=== PATIENT | male | born 1950 | race Caucasian/White ===

== ENCOUNTER → 2023-10-24 13:00 | Outpatient (REF) | payer MEDICARE, OTHER, SELFPAY | LOC: RCS 13:00 | PROVIDERS: ATTENDING PHYSICIAN Internal Medicine Cardiovascular Disease; FAMILY PHYSICIAN Family Medicine | DX: R94.31 Abnormal electrocardiogram [ECG] [EKG] (principal); I10 Essential (primary) hypertension; I49.3 Ventricular premature depolarization; R06.02 Shortness of breath; I45.10 Unspecified right bundle-branch block | CPT/HCPCS: 93225; 93226 ==

== ENCOUNTER → 2024-05-01 12:50 | Outpatient (REF) | payer MEDICARE, OTHER, SELFPAY ==
--- NOTE | 2024-05-01 15:01 | CARDSERVLU ---
Echocardiogram with Lumason completed after protocol screening completed. Allergies verified.
Patent IV site: _RAC____
IV site flushed with 0.9% NaCl pre and post administration.
Diluted bolus method utilized to enhance visualization of ventricular mckeon.
Total volume given: __3__ mL
Patient tolerated all procedures well without complications.
== END ==
LOC: HWRCS 12:50
PROVIDERS: ATTENDING PHYSICIAN Internal Medicine Cardiovascular Disease; FAMILY PHYSICIAN Family Medicine
DX: I49.3 Ventricular premature depolarization (principal); R07.9 Chest pain, unspecified; I10 Essential (primary) hypertension; E78.2 Mixed hyperlipidemia
CPT/HCPCS: 93306

== ENCOUNTER → 2024-05-02 09:10 | Outpatient (REF) | payer MEDICARE, OTHER, SELFPAY ==
[2024-05-02 10:37] LABS: Hematocrit 43.4 % (39.0-52.0); Hemoglobin 15.4 g/dL (13.0-18.0); Mean Corp Hgb Conc. 35.5 g/dL (33.0-37.0); Mean Corpuscular Hgb 32.8 pg (27.0-31.0); Mean Corpuscular Volume 92.3 fL (80.0-94.0); Mean Platelet Volume 9.4 fL (7.4-10.4); Platelet Count 211 10^3/uL (130-400); Red Cell Dist. Width 12.4 % (11.5-14.5); White Blood Cell Count 7.5 10^3/uL (4.8-10.8)
[2024-05-02 10:56] LABS: Blood Urea Nitrogen 18 mg/dl (9-20); Calcium 9.5 mg/dl (8.4-10.2); Carbon Dioxide 27 mmol/L (22-30); Chloride 97 mmol/L (98-107); Glucose 135 mg/dl (70-99); Potassium 4.5 mmol/L (3.5-5.1); Sodium 138 mmol/L (135-145); eGFR > 60.00
== END ==
LOC: SDSPAT 09:10
PROVIDERS: ATTENDING PHYSICIAN Urology; FAMILY PHYSICIAN Family Medicine; OTHER PHYSICIAN Internal Medicine Cardiovascular Disease
DX: Z01.818 Encounter for other preprocedural examination (principal)
CPT/HCPCS: 36415; 80048; 85027

== ENCOUNTER 2024-05-14 06:27 | Day surgery (SDC) | payer MEDICARE, OTHER, SELFPAY ==
[2024-05-02 09:30] VITALS: BMI 29.2
[2024-05-14] VITALS (14 sets, daily range): BP systolic 103–168; BP diastolic 48–79; BMI 29.2
[2024-05-14 08:48] LABS: Glucose - Point of Care 142 mg/dl (70-99)
--- NOTE | 2024-05-14 11:43 | W.IMMPOSTOP ---
Surgical Immed Post Op Note
-
Primary Surgeon: Peffer
Assisting Surgeon: -
Pre-op Diagnosis: BPH
Post-op Diagnosis: BPH, bladder lesion
Procedure Performed: TURP, TURBT small
Anesthesia Type: gen
Specimen / Cultures: Prostate chips, posterior bladder neck lesion
Estimated Blood Loss: 1cc
Complications: none
Operative Findings: 3mm posterior bladder neck lesion/polyp with long vascular stalk. Relatively benign appearance, completely resected
Otherwise routine TURP
[2024-05-14 12:15] LABS: Glucose - Point of Care 117 mg/dl (70-99)
[2024-05-14] MEDS: NSS 1000 IV ×2 (13:54→22:42)
--- NOTE | 2024-05-14 14:04 | PTCARENOTE ---
Pt arrived to 2S in bed. Full assessment completed. IVF infusing per order. CBI infusing, clear output noted. Diabetic diet reviewed with pt, pt verbalized understanding. Bed locked and in the lowest position, safety maintained. Oriented to room and
call barkaat, significant other at bedside.
[2024-05-14 17:09] LABS: Glucose - Point of Care 185 mg/dl (70-99)
[2024-05-14] MEDS: FLOMAX 0.4 MG PO (17:46)
[2024-05-14] MEDS: CRESTOR 5 MG PO (17:47)
[2024-05-14] MEDS: NOVOLOG FLEXPEN-LOW RESISTANCE 1 UNITS SC (17:47)
[2024-05-14] MEDS: TOPROL XL 25 MG PO (17:47)
[2024-05-14 21:26] LABS: Glucose - Point of Care 144 mg/dl (70-99)
[2024-05-14] MEDS: TYLENOL 650 MG PO (21:43)
[2024-05-14] MEDS: MYLICON 80 MG PO (21:43)
[2024-05-15 03:56] VITALS: BP 109/70
[2024-05-15] MEDS: TYLENOL 650 MG PO (04:29)
[2024-05-15] MEDS: MYLICON 80 MG PO (04:48)
[2024-05-15 05:43] LABS: Hematocrit 39.7 % (39.0-52.0); Hemoglobin 13.9 g/dL (13.0-18.0); Mean Corpuscular Hgb 32.9 pg (27.0-31.0); Mean Corpuscular Volume 93.9 fL (80.0-94.0); Mean Platelet Volume 9.5 fL (7.4-10.4); Platelet Count 210 10^3/uL (130-400); Red Blood Cell Count 4.23 10^6/uL (4.70-6.10); Red Cell Dist. Width 12.3 % (11.5-14.5); White Blood Cell Count 10.5 10^3/uL (4.8-10.8)
[2024-05-15 06:04] LABS: Blood Urea Nitrogen 14 mg/dl (9-20); Calcium 8.9 mg/dl (8.4-10.2); Carbon Dioxide 23 mmol/L (22-30); Chloride 104 mmol/L (98-107); Estimated Creatinine Clearance 117 ml/min; Glucose 128 mg/dl (70-99); Potassium 4.3 mmol/L (3.5-5.1); Sodium 141 mmol/L (135-145); eGFR > 60.00
[2024-05-15 07:00] VITALS: BP 136/75
[2024-05-15 07:00] LABS: Glucose - Point of Care 139 mg/dl (70-99)
[2024-05-15] MEDS: NOVOLOG FLEXPEN-LOW RESISTANCE SC ×2 (08:09→12:31)
--- NOTE | 2024-05-15 08:25 | W.PN.URO.CBU ---
Today's Communication / Plan
-
Burgess removal and trial of void
Discharge today
Assessment / Plan
-
73M POD 1 s/p TURP
Burgess removal and trial of void
Discharge today
Diagnosis
-
Date of Service: May 15, 2024
-
Patient Diagnosis:
BPH
Post Op Day: 1 s/p TURP
Subjective
-
no events
tolerating diet
no pain
nohematuria
Objective
-
Vital Signs
Temp Pulse Resp BP Pulse Ox
97.5 F 65 17 136/75 98
05/15/24 07:00 05/15/24 07:00 05/15/24 07:00 05/15/24 07:00 05/15/24 07:00
Intake and Output
05/14/24 05/15/24 05/16/24
06:59 06:59 06:59
Intake Total 2820 / 2820
Output Total 6300 / 6300
Balance -3480 / -3480
Intake:
Oral fluids 1920 / 1920
IV fluids (Total) 900 / 900
Normosol 150 / 150
Output:
Urine, Voided 1500 / 1500
True Urine Output from CBI 4800 / 4800
Laboratory Results
05/15/24 04:23
05/15/24 04:23
Physical Exam
-
General - well developed, well nourished, no acute distress
Chest - clear bilaterally
Abdomen - soft, non-tender
Burgess in place clear yellow
[2024-05-15] MEDS: PROTONIX 40 MG PO (08:44)
[2024-05-15] MEDS: TOPROL XL 50 MG PO (08:44)
--- NOTE | 2024-05-15 10:50 | CM ---
Met with pt at bedside
Pt reports he lives with his girlfriend in a 2 story [place] home; 6 steps to enter, 12 steps to 2nd fl. + 1/2 bath on FF
Independent, retired, drives
DME - none
SNF/HH - denies past hx
Has ride home at discharge
PCP - Katey Esqueda
Ben
Plan - anticipate home no needs
[2024-05-15 11:00] VITALS: BP 149/82
[2024-05-15 11:28] LABS: Glucose - Point of Care 168 mg/dl (70-99)
--- NOTE | 2024-05-15 13:00 | PTCARENOTE ---
Burgess catheter removed as ordered at 0845. pt voided 100 ml bloody urine at 1000, PVR was 182. pt then voided an additional 200 ml punch colored urine at 1020 w/PVR 183. Dr Garibay made aware and pt instructed to increase fluid intake. monitoring
of urine output for color and amount before able to be discharged. pt has voided a total of an additional 1150 ml. last void was 300ml pink lemonade colored urine. pt endorses a minimal amount of discomfort when voiding. Dr Garibay made aware.
pt provided with discharge instructions.
[2024-05-17 03:40] LABS: Hepatitis C Antibody Negative (Negative)
== END 2024-05-15 13:30 | disposition home or self-care (01) ==
LOC: SDS 06:27
PROVIDERS: ATTENDING PHYSICIAN Urology; FAMILY PHYSICIAN Family Medicine
DX: C61 Malignant neoplasm of prostate (principal); N40.1 Benign prostatic hyperplasia with lower urinary tract symptoms; D49.4 Neoplasm of unspecified behavior of bladder; N32.9 Bladder disorder, unspecified
CPT/HCPCS: 52601; 52234; 88305; 80048; 82962; 83036; 85027; 86803

== ENCOUNTER → 2024-09-19 09:39 | Outpatient (REF) | payer MEDICARE, OTHER, SELFPAY | LOC: MRI 3T 09:39 | PROVIDERS: ATTENDING PHYSICIAN Urology | DX: N40.1 Benign prostatic hyperplasia with lower urinary tract symptoms (principal); C61 Malignant neoplasm of prostate | CPT/HCPCS: 72197; A9575 ==

== ENCOUNTER → 2024-11-12 13:36 | Outpatient (REF) | payer MEDICARE, OTHER, SELFPAY | LOC: CLAB 13:36 | PROVIDERS: ATTENDING PHYSICIAN Urology | DX: C61 Malignant neoplasm of prostate (principal) | CPT/HCPCS: 88305 ==

== ENCOUNTER → 2024-12-02 12:55 | Outpatient (REF) | payer MEDICARE, OTHER, SELFPAY | LOC: RCS 12:55 | PROVIDERS: ATTENDING PHYSICIAN Internal Medicine Cardiovascular Disease; FAMILY PHYSICIAN Family Medicine | DX: I49.3 Ventricular premature depolarization (principal) | CPT/HCPCS: 93225; 93226 ==

== ENCOUNTER → 2024-12-05 08:43 | Outpatient (REF) | payer MEDICARE, OTHER, SELFPAY | LOC: MRI 08:43 | PROVIDERS: ATTENDING PHYSICIAN Physical Medicine & Rehabilitation; FAMILY PHYSICIAN Family Medicine | DX: M54.16 Radiculopathy, lumbar region (principal) | CPT/HCPCS: 72148 ==

== ENCOUNTER 2025-05-14 06:31 | Day surgery (SDC) | payer MEDICARE, OTHER, SELFPAY ==
[2025-05-14 07:59] LABS: Glucose - Point of Care 160 mg/dl (70-99)
== END 2025-05-14 10:15 | disposition home or self-care (01) ==
LOC: GI 06:31
PROVIDERS: ATTENDING PHYSICIAN Specialist
DX: Z12.11 Encounter for screening for malignant neoplasm of colon (principal); K57.30 Diverticulosis of large intestine without perforation or abscess without bleeding; R11.2 Nausea with vomiting, unspecified; K31.7 Polyp of stomach and duodenum; K22.70 Barrett's esophagus without dysplasia; K63.5 Polyp of colon; K29.50 Unspecified chronic gastritis without bleeding; K63.89 Other specified diseases of intestine; Z80.0 Family history of malignant neoplasm of digestive organs; Z86.0101 Personal history of adenomatous and serrated colon polyps
CPT/HCPCS: 45380; 43239; 82962; 88305; 88342

== ENCOUNTER → 2025-05-29 12:50 | Outpatient (REF) | payer MEDICARE, OTHER, SELFPAY | LOC: HWRCS 12:50 | PROVIDERS: ATTENDING PHYSICIAN Internal Medicine Cardiovascular Disease; FAMILY PHYSICIAN Family Medicine | DX: I49.3 Ventricular premature depolarization (principal); R07.9 Chest pain, unspecified | CPT/HCPCS: 93306 ==